=== PATIENT | male | born 1995 | race Caucasian/White ===

== ENCOUNTER → 2017-12-11 09:32 | Outpatient (CLI) | payer MEDICAID, SELFPAY | PROVIDERS: PCP Family Medicine; Visit Provider Nurse Practitioner | DX: Z02.1 Encounter for pre-employment examination (principal) ==

== ENCOUNTER 2019-11-25 17:52 | Emergency (ER) | payer OTHER, SELFPAY ==
[2019-11-25 18:02] VITALS: BMI 25.0
--- NOTE | 2019-11-25 18:03 | XR_ITS ---
PROCEDURE: XR ANKLE RT 2V CLINICAL INDICATION: pain, injury COMPARISON: XR TIBIA FIBULA RT 2V from 11/25/2019 FINDINGS: There is an oblique mildly displaced fracture involving the distal shaft of the tibia. There is 8 mm medial displacement and 6 mm posterior displacement of the distal fracture fragment. The fracture begins at the lateral aspect of the distal diaphyseal region and exits medially at the diaphyseal metaphyseal junction. The ankle mortise appears intact. Lucency is noted along the medial aspect of the talar dome on the AP view but not duplicated on the mortise view and may be due to artifact. There is an oblique mildly displaced fracture involving the proximal fibula. There is 8 mm anterior and 6 mm lateral displacement of this fracture fragment. IMPRESSION: Mildly displaced right tib fib fracture as described above Ankle mortise appears intact Dictated by: Temo Gilman MD 11/26/2019 08:52 Electronically signed by Temo Gilman MD in [place] 11/26/2019 08:52
--- NOTE | 2019-11-25 18:06 | XR_ITS ---
PROCEDURE: XR FOOT RT 2V CLINICAL INDICATION: pain, injury COMPARISON: No exams were available for comparison FINDINGS: No fracture or dislocation. No lytic or blastic change. There is normal mineralization. The joint spaces are well-preserved. No significant degenerative/arthritic changes. No erosive changes evident. Other findings:None. IMPRESSION: Negative right foot Dictated by: Temo Gilman MD 11/26/2019 08:46 Electronically signed by Temo Gilman MD in [place] 11/26/2019 08:46
[2019-11-25 18:07] VITALS: BP 133/81; PULSE 88; RESP 18; TEMP 36.8; O2SAT 99; BMI 25.7
--- NOTE | 2019-11-25 18:07 | HMH.EDLOEX ---
ED Disposition Clinical Impression: Right tibial fracture Qualifiers: Encounter type: initial encounter Tibia location: distal Fracture type: closed Fracture morphology: other fracture Qualified Code(s): S82.391A - Other fracture of lower end of right tibia, initial encounter for closed fracture Right fibular fracture Qualifiers: Encounter type: initial encounter Fibula location: proximal Fracture type: closed Fracture morphology: other fracture Qualified Code(s): S82.831A - Other fracture of upper and lower end of right fibula, initial encounter for closed fracture Disposition: Home, Self-Care Condition on Discharge: Fair Instructions: DI for Shinbone Fracture Additional Instructions: You have been evaluated for a right tibia and fibula fractures. Please keep splint in place. Follow-up with Dr. Hernandez in clinic tomorrow morning. Call the clinic at 8 AM for your appointment ([phone]). Take Tylenol for pain. Rozet for extreme pain. Return to the emergency department if you have any new or worsening symptoms tonight, particularly any tingling in your toes or extreme pain. Prescriptions: Oxycodone HCl [Oxycodone 5mg tab (IR)] 5 mg PO Q4-6H 2 Days #8 tab Prescription Printed Referrals: Pao Rodríguez MD [Primary Care Provider] - Time of Disposition: 19:12 - Critical Care Critical Care Time: No Attestation: On 11/25/19, the high probability of a clinically significant, sudden or life threatening deterioration of the following system(s) required my full and direct attention, intervention and personal management. The time I documented below is in addition to time spent performing reported procedures but includes the following listed in this critical care notation. Medical Decision Making - Jason Inquiry Pt receiving controlled substance: No Vital Signs: 11/25/19 18:07 11/25/19 19:47 Temperature 98.3 F 98.2 F Temperature Source Oral Oral Pulse Rate 91 H Pulse Rate [Right Radial] 88 Respiratory Rate 18 16 Blood Pressure 138/87 Blood Pressure [Right Arm] 133/81 Blood Pressure Mean [Right Arm] 98 Blood Pressure Source Automatic Cuff Blood Pressure Source [Right Arm] Automatic Cuff Blood Pressure Position Sitting Blood Pressure Position [Right Arm] Sitting 02 Sat by Pulse Oximetry 99 Oxygen Delivery Method Room Air Room Air Orders (Tests/Meds): ED MEDICATIONS Discontinued Medications Generic Name Dose Route Start Last Admin Trade Name Freq PRN Reason Stop Dose Admin Acetaminophen 1,000 mg 11/25/19 18:12 11/25/19 18:47 Tylenol 500mg Tablet PO 11/25/19 18:13 1,000 mg ONCE ONE Administration Ibuprofen 600 mg 11/25/19 18:13 11/25/19 18:48 Motrin 600mg Tablet PO 11/25/19 18:14 Not Given ONCE ONE ORDERS Category Date Time Status XR ankle RT 2V Stat Exams 11/25/19 18:06 Taken XR foot RT 2V Stat Exams 11/25/19 18:06 Taken XR tibia fibula RT 2V Stat Exams 11/25/19 18:03 Taken - Radiology Data #1 Image(s): Tib/Fib, Ankle (X-rays of the right foot and ankle show a spiral proximal fibula fracture. Comminuted spiral distal tibia fracture) Image Reviewed: Yes I reviewed the patient's radiology image Medical Decision Narrative: Brennan this is a 24-year-old male presenting to the emergency department with right ankle injury. Patient is stable on arrival to the emergency department. He has pain over the medial malleolus and distal tibia. Concern for tibia fracture, ankle fracture, dislocation, high ankle sprain, strain. Plan to obtain plain film ex-rays of the foot, ankle, tib-fib. Patient given Tylenol for pain. Rays show a proximal fibula fracture and a distal tibia fracture. Orthopedic surgery, Dr. Hernandez consulted for evaluation and recommendations. He personally reviewed the images and recommended splinting tonight and follow-up in clinic tomorrow. Patient will likely need operative repair. Patient was placed into a splint with a posterior slab and st
--- NOTE | 2019-11-25 18:27 | PC.NURSE ---
PT HAS RETURNED FROM RAD AND ORTHO, DR MURPHY, HAS BEEN PAGED.
--- NOTE | 2019-11-25 18:29 | PC.NURSE ---
ADVISES THAT DR MURPHY IS GOING TO REVIEW XRAYS AND CALL US BACK
--- NOTE | 2019-11-25 19:46 | PC.NURSE ---
pt given a set of crutches and demonstrated correct use. peripheral circulation assessed by MD before D/C
[2019-11-25 19:47] VITALS: BP 138/87; PULSE 91; RESP 16; TEMP 36.8; O2SAT 99
== END 2019-11-25 19:49 | disposition home or self-care (01) ==
PROVIDERS: Emergency Provider Emergency Medicine; PCP Family Medicine
DX: S82.391A Other fracture of lower end of right tibia, initial encounter for closed fracture (principal); S82.831A Other fracture of upper and lower end of right fibula, initial encounter for closed fracture; W17.89XA Other fall from one level to another, initial encounter; Y93.39 Activity, other involving climbing, rappelling and jumping off; Y92.017 Garden or yard in single-family (private) house as the place of occurrence of the external cause
CPT/HCPCS: 29515; 73590; 73600; 73620; 99283; 99284

== ENCOUNTER → 2019-11-26 09:16 | Outpatient (CLI) | payer OTHER, SELFPAY ==
--- NOTE | 2019-11-26 09:22 | CT_ITS ---
PROCEDURE: CT ANKLE RT WO CON CLINICAL HISTORY: right distal tibia fx evaluation Pain following injury, fracture evaluation COMPARISON: XR ANKLE RT 2V from 11/25/2019 TECHNIQUE: Axial images obtained with sagittal and coronal reformats. All CT scans at the facility use one or more dose reduction, viz: automated exposure control, ma/kV adjustment per patient size (including targeted exams where dose is matched to indication, i.e. head), or iterative reconstruction technique. FINDINGS: There is a mildly displaced fracture of the distal tibia which has an oblique orientation beginning at the distal diaphyseal region laterally and extending obliquely and inferiorly to the medial metaphyseal diaphyseal junction. There is 12 mm distraction of the distal fracture fragment with mild dorsal displacement of the distal fracture fragment by 4 mm and mild medial displacement by 4 mm. In addition, there is a longitudinal component of the fracture medially which extends to the base of the medial malleolus posteriorly. The talar dome has an unremarkable appearance. The fibula has an unremarkable appearance. The ankle mortise does not appear widened. There is generalized soft tissue swelling about the distal leg and ankle. IMPRESSION: Mildly displaced oblique distal tibial fracture as described above. There is a nondisplaced longitudinal component extending into the posterior aspect of the articular surface of the base of the medial malleolus. Dictated by: Temo Gilman MD 11/26/2019 10:20 Electronically signed by Temo Gilman MD in [place] 11/26/2019 10:20
== END ==
PROVIDERS: PCP Family Medicine; Visit Provider Orthopaedic Surgery
DX: S82.201A Unspecified fracture of shaft of right tibia, initial encounter for closed fracture (principal); S82.401A Unspecified fracture of shaft of right fibula, initial encounter for closed fracture
CPT/HCPCS: 73700

== ENCOUNTER → 2019-11-27 13:29 | Outpatient (CLI) | payer OTHER, SELFPAY ==
[2019-11-27 16:53] LABS: Coronavirus 19 IgG Antibody Negative (Negative); Coronavirus 19 IgM Antibody Negative (Negative)
== END ==
PROVIDERS: Visit Provider Orthopaedic Surgery
DX: Z01.818 Encounter for other preprocedural examination (principal); S82.391A Other fracture of lower end of right tibia, initial encounter for closed fracture; S82.831A Other fracture of upper and lower end of right fibula, initial encounter for closed fracture
CPT/HCPCS: 36415; 86328

== ENCOUNTER 2019-11-30 07:33 | Day surgery (SDC) | payer OTHER, SELFPAY ==
--- NOTE | 2019-11-26 15:12 | SUR.PREOP ---
11/26/2019 @ 8312--PHONE CALL MADE TO PATIENT. PATIENT UNDERSTANDS THAT LAB WORK AND COVID TESTING NEEDS TO BE COMPLETED @ 1030 ON 11/27/2019. PATIENT UNDERSTANDS IF LAB WORK AND COVID-19 TESTS ARE NOT COMPLETED BY 12PM ON THAT DATE, THE SURGERY SCHEDULED WILL BE CANCELLED AND RESCHEDULED FOR ANOTHER TIME.
[2019-11-27 12:22] VITALS: BMI 25.7
[2019-11-30] VITALS (12 sets, daily range): BP systolic 123–145; BP diastolic 46–91; PULSE 93–106; RESP 16–18; TEMP 36.6–43; O2SAT 98–100
--- NOTE | 2019-11-30 08:46 | P.PN_ITS ---
[facility] Anesthesia Checklist - Patient Identification Patient Identification: Arm Band - Structural Data Admitted From: Home Planned Operative Procedure/s: ORIF right distal tibia and syndesmosis fixation Consent for Planned Operative Procedure(s) Verified: Yes Verified Documents: Surgical Consent, History and Physical - NPO Status Verified Time NPO: 00:00 - Additional verifications Anesthesia Reactions: No Hx Blood Transfusions: No Blood Transfusion Reaction: No - Airway Assessment C-Spine Mobility Assessed: Yes (mp2) TMJ Mobility Assessed: Yes Dentition: Good Dentition - Neurological Assessment Level of Consciousness: Awake, Alert - Anesthesia Plan Anesthesia Risk discussed: Yes Anesthesia Plan: Verified ASA Class: I Anesthesia Type: General w/block (risks benefits of nerve block explained. Pt verbalizes understanding) [facility] History I have reviewed the patient's past medical history: Yes Medical History: Denies:: Cancer, Diabetes Mellitus Type 1, Diabetes Mellitus Type 2, Internal Pacemaker, MRSA, Seizures *Have you ever received a pneumonia vaccine?: No *Have you received a flu vaccine this season?: Yes Other Medical History: Denies: Blood Transfusion Reaction Anesthesia experience/problems:: nac Other Surgeries: Yes: No Previous Surgery. No: Pacemaker Amputation: No Fractures: No - *Social History Educational Level: Completed High School Smoking Status: Never smoker Alcohol Intake: never Substance Use Type: denies use *Occupational Status:: employed Housing: house Household Members: family *Travel in the last 8 weeks: None Family Hx:: Coronary Artery Disease, Diabetes
--- NOTE | 2019-11-30 13:10 | XR_ITS ---
PROCEDURE: XR ANKLE RT 2V CLINICAL INDICATION: ORIF distal tibia COMPARISON: XR ANKLE RT 2V from 11/25/2019 FINDINGS: Fluoroscopy time: 1 minutes and 45 seconds Multiple images submitted with the C-arm showing a medial bone plate placed with multiple screws stabilizing the distal tibial fracture with good alignment. Syndesmotic repair of the distal tib fib performed as well with a screw and translucent fixator at the distal tib fib region IMPRESSION: Good alignment status post ORIF distal tibia as described above Dictated by: Temo Gilman MD 11/30/2019 15:34 Electronically signed by Temo Gilman MD in [place] 11/30/2019 15:34
--- NOTE | 2019-11-30 13:13 | P.PN_ITS ---
[facility] Anesthesia Record Part I Intake, IV Amount: 1,600 Estimated blood loss (mL): 10 Urine output (mL): 300 Blood Products used (#): none Blood Pressure: 126/91 SaO2: 98 Pulse Rate: 105 Respiratory Rate: 18 Temperature: 98.0 F Patient is:: Drowsy, Stable Stable to PACU at:: 13:10
--- NOTE | 2019-11-30 13:45 | PC.NURSE ---
1340-pt transported to post op via stretcher with perez rails up, detailed report given to AlemRN at bedside, vss , pt stable
[2019-11-30 14:04] LABS: Microscopic,Cath URINE MICROSCOPIC (MICROSCOPIC)
[2019-11-30 14:49] LABS: Appearance,Urine/Cath CLEAR (Clear); Bilirubin,Cath Negative (Negative); Blood, Urine/Cath Negative (Negative); Color,Urine/Cath YELLOW (Yellow); Glucose,Urine/Cath (UA) Negative (Negative); Ketones,Urine/Cath Negative (Negative); Leukocyte Esterase,Cath Negative (Negative); Nitrate,Cath Negative (Negative); Protein,Urine/Cath Negative (Negative); Specific Gravity, Urine/Cath 1.025 (1.005-1.030); Urobilinogen,Cath 0.2 EU/dl (0.2)
--- NOTE | 2019-11-30 15:07 | P.PN_ITS ---
[facility] Anesthesia Record Part II Discharge Time: 13:40 Destination: Surgical Day Care (OP Surgery) PACU nurse assessment reviewed?: Yes Patient Condition:: Good Anesthesia Complications:: None Swallowing reflex intact?: Yes Cyanosis?: No Blood Pressure: 145/85 Pulse Rate: 103 Temperature: 98.7 F Mental Status: Alert & Oriented Pain level:: 0 Nausea and/or vomitting:: None Intake, IV Amount: 50
[2019-11-30 15:22] LABS: Squamous Epithelial Ur./Cath Occasional #/hpf (0-5); WBC,Urine/Cath Occasional #/hpf (0-3)
--- NOTE | 2019-11-30 15:49 | HMH.OPNOTE ---
Date of procedure: 11/30/19 Pre-op Diagnosis:: 1. Closed, comminuted, displaced fracture distal tibia, right 2. Closed proximal fibula fracture, right Post-op Diagnosis:: 1. Closed, comminuted, displaced fracture distal tibia, right 2. Closed proximal fibula fracture, right 3. Syndesmotic injury, right ankle Procedure performed:: 1. Open reduction internal fixation, right distal tibia 2. Syndesmotic fixation, right ankle Surgeon:: Arjun Hernandez MD SENIOR ACCOUNTING ASSOCIATE:: Barrie Rodríguez Anesthesia: GETA, regional (Nerve block) Estimated blood loss (mL): 10 Clinical Note:: Patient is a 24-year-old male who sustained a displaced spiral fracture of the distal tibia with a spiral fracture of the proximal fibula on the right side following injury 5 days ago while doing a back flip on the [employer]; he says he landed funny on his right foot sustaining a twisting injury to the leg. He developed pain and swelling immediately and was unable to weight-bear/walk. Following the injury he went to the Emergency Room where x-rays confirmed a spiral fracture of the distal tibia with a high fibula fracture. After x-rays were performed he was placed in a short leg splint and told to follow up with orthopaedics. During evaluation in the office the next day, he continued to have pain around his right distal tibia/ankle. He states any movements aggravate his pain. He rates his pain a 7 out of 10 at worst. He states icing, elevation, pain medication and rest help alleviate his pain to some extent. No history of any distal tingling or numbness. No history of any other injuries. He states he is mobilizing nonweightbearing using crutches to ambulate. No history of any previous ankle injuries or surgery. He has remote history of bilateral foot fractures treated nonoperatively. He is a non smoker and overall is healthy. He works at [employer]. Evaluation in the office including noncontrast CT of the right ankle confirmed intra-articular extension of the fracture into the ankle joint. Following discussion with the patient and his mother, patient elected to proceed with surgical remediation in the form of open reduction internal fixation of the right distal tibia. Please refer to my office note for full details. Operative findings:: Preoperative imaging findings and diagnosis correlate with the intraoperative findings. There is a displaced and comminuted spiral fracture of the distal tibia with extension into the ankle joint. High fibula fracture noted as seen in the preoperative x-rays. The tibia fracture is anatomically reduced and fixed with interfragmentary screws and locking plate and screws through the medial approach. After fixation of the distal tibial fracture, the inferior tibiofibular syndesmosis appeared unstable on stress x-rays of the ankle and therefore syndesmotic fixation was performed with Fibulink syndesmotic fixation device. Following fixation the fracture and syndesmosis, the ankle joint is noted to be reduced anatomically and is stable. Operative note:: On the day of surgery, the patient and his were met in the preoperative area and the patient was positively identified. I have again reviewed the clinical and imaging findings, diagnosis, management options including both nonsurgical and surgical and the expected results. Given the clinical and radiological findings, I have recommended an open reduction and internal fixation of the distal tibia fracture and stabilization of the syndesmosis as needed intraoperatively. We've outlined where the incisions would be made on the skin. Risks of surgery discussed include but are not limited to- infection, injury to nerves and blood vessels, injury to tendons, acute compartment syndrome, DVT/PE, mal-union, nonunion, stiffness, CRPS (complex regional pain syndrome- pain, sensory and temperature changes, swelling and stiffness), painful hardware, loss of fixation, arthritis, incomplete relief of pain, incomplete return of function
== END 2019-11-30 14:26 | disposition home or self-care (01) ==
LOC: OR 07:36
PROVIDERS: PCP Family Medicine; Visit Provider Orthopaedic Surgery
PROC: (CPT 27758; principal; 2019-11-30 08:45)
DX: S82.251A Displaced comminuted fracture of shaft of right tibia, initial encounter for closed fracture (principal); S82.441A Displaced spiral fracture of shaft of right fibula, initial encounter for closed fracture; S93.431A Sprain of tibiofibular ligament of right ankle, initial encounter; Y93.44 Activity, trampolining; Y92.017 Garden or yard in single-family (private) house as the place of occurrence of the external cause
CPT/HCPCS: 27758; 27829; 73600; 76000; 81001; 96374; C1713; C1776; J2405

== ENCOUNTER → 2019-12-08 10:31 | Outpatient (CLI) | payer OTHER, SELFPAY ==
--- NOTE | 2019-12-08 10:41 | XR_ITS ---
PROCEDURE: XR ANKLE RT MIN 3V CLINICAL INDICATION: sp RT tibia/ RT syndemosis of ankle dos 11/30/2019 Follow-up surgery/fracture COMPARISON: XR ANKLE RT 2V from 11/30/2019 FINDINGS: There is a medial bone plate along the distal 1/3 of the tibia with curved component at the medial malleolar region. Status post syndesmosis repair with translucent fixator at the tib fib region. There is good alignment the tibial fracture fragments. The ankle mortise does not appear widened. There is a splint in place posteriorly. IMPRESSION: Good alignment status post ORIF distal tib fib Dictated by: Temo Gilman MD 12/08/2019 14:19 Electronically signed by Temo Gilman MD in [place] 12/08/2019 14:19
== END ==
PROVIDERS: PCP Family Medicine; Visit Provider Orthopaedic Surgery
DX: S82.401D Unspecified fracture of shaft of right fibula, subsequent encounter for closed fracture with routine healing (principal)
CPT/HCPCS: 73610

== ENCOUNTER 2019-12-08 11:32 | Outpatient (RCR) | payer OTHER, SELFPAY | END 2019-12-08 12:00 | disposition home or self-care (01) | LOC: PT 11:32 | PROVIDERS: Visit Provider Orthopaedic Surgery | DX: S82.391D Other fracture of lower end of right tibia, subsequent encounter for closed fracture with routine healing (principal); S82.831D Other fracture of upper and lower end of right fibula, subsequent encounter for closed fracture with routine healing | CPT/HCPCS: 97760 ==

== ENCOUNTER → 2020-01-13 10:14 | Outpatient (CLI) | payer OTHER, SELFPAY ==
--- NOTE | 2020-01-13 10:15 | XR_ITS ---
PROCEDURE: XR ANKLE RT MIN 3V CLINICAL INDICATION: sp ORIF RT ankle Syndesmotic fixation Kathy COMPARISON: XR ANKLE RT 2V from 11/25/2019 XR TIBIA FIBULA RT 2V from 11/25/2019 XR ANKLE RT MIN 3V from 12/08/2019 XR TIBIA FIBULA RT 2V from 01/13/2020 FINDINGS: There has been prior ORIF the comminuted distal tibial fracture with a medial bone plate with multiple screws and there has been prior syndesmotic repair the distal tibial-fibular junction. There is good alignment. The ankle mortise is preserved. No significant displacement. There is a healing nondisplaced oblique fracture of the proximal shaft of the fibula with developing callus formation. IMPRESSION: 1. Good alignment status post ORIF tibial for fracture with syndesmotic repair 2. Healing proximal fibular fracture Dictated by: Temo Gilman MD 01/13/2020 13:48 Electronically signed by Temo Gilman MD in [place] 01/13/2020 13:48
== END ==
PROVIDERS: PCP Family Medicine; Visit Provider Orthopaedic Surgery
DX: Z09 Encounter for follow-up examination after completed treatment for conditions other than malignant neoplasm (principal); S82.391D Other fracture of lower end of right tibia, subsequent encounter for closed fracture with routine healing; S82.831D Other fracture of upper and lower end of right fibula, subsequent encounter for closed fracture with routine healing
CPT/HCPCS: 73590; 73610

== ENCOUNTER → 2020-02-10 10:26 | Outpatient (CLI) | payer OTHER, SELFPAY ==
--- NOTE | 2020-02-10 10:28 | XR_ITS ---
PROCEDURE: XR TIBIA FIBULA RT 2V CLINICAL INDICATION: sp ORIF RT ankle Syndesmotic fixation Follow-up surgery COMPARISON: CR XR TIBIA FIBULA RT 2V from 11/25/2019 CR XR TIBIA FIBULA RT 2V from 01/13/2020 CR XR ANKLE RT MIN 3V from 01/13/2020 CR XR ANKLE RT MIN 3V from 02/10/2020 FINDINGS: Status post ORIF distal tib fib with a medial bone plate at the distal tibia. There is callus formation developing medially at the comminuted fracture. There is good alignment. There is syndesmotic repair of the distal tib fib with preservation of the ankle mortise. Healing only displaced proximal fibular fracture is present. IMPRESSION: Status post ORIF with good alignment healing distal tibial fracture and proximal fibular fracture Dictated by: Temo Gilman MD 02/10/2020 12:00 Temo Gilman MD in [place] 02/10/2020 12:00
== END ==
PROVIDERS: PCP Family Medicine; Visit Provider Orthopaedic Surgery
DX: S82.201A Unspecified fracture of shaft of right tibia, initial encounter for closed fracture (principal); S82.401A Unspecified fracture of shaft of right fibula, initial encounter for closed fracture; Z09 Encounter for follow-up examination after completed treatment for conditions other than malignant neoplasm
CPT/HCPCS: 73590; 73610

== ENCOUNTER 2020-03-09 09:30 | Outpatient (RCR) | payer OTHER, SELFPAY ==
--- NOTE | 2020-01-21 14:39 | HMH.PTOPEV ---
PT Outpatient Evaluation Rehab PT Outpatient Evaluation Start: 01/21/20 14:27 Freq: Status: Active Protocol: Document 01/21/20 14:27 ARON (Rec: 01/21/20 14:38 ARON [id number]) Electronically Signed By Gerhard Murillo, PT 01/21/20 14:27 Outpatient Therapy Subjective History Subjective History Pt presents s/p R ankle/distal tibia ORIF sx. on 11/30/19. Pt reports initial injury to R LE occurred on 11/25/19-trampoline injury. Pt reports minimal R LE pain , some residual swelling, and stiffness as well as weakness. Chief Complaint Pain,Stiff,Swelling,Weakness Symptom Type Ache,Dull Symptoms Relieved By Rest/Positioning,Ice Symptoms Aggravated By Standing,Walking Prior Functional Limitations None Current Functional Limitations Standing,Walking,Stairs Symptom Description Constant but Variable Level of pain today (0-10) 2 Pain scale - at its best (0-10) 2 Pain scale - at its worst (0-10) 6 Ankle/Foot Eval Gait Observation General Gait Pattern Observation Antalgic Gait Palpation Tenderness right Ankle/Foot Palpation Findings Tenderness Ankle/Foot Palpation Overall Comment 2-3/4 surgical incision, sinus tarsi, lateral malleolus ROM Ankle/Foot Dorsiflexion w/Knee Extended 0 Active Range Motion (degrees) Ankle/Foot Dorsiflexion w/Knee Extended 0-5 Passive Range (degrees) Ankle/Foot Plantar Flexion Active Range 0-50 of Motion (degrees) Ankle/Foot Eversion Active Range of 0-18 Motion (degrees) Ankle/Foot Inversion Active Range of 0-40 Motion (degrees) Ankle/Foot ROM Limitations Soft Tissue Tightness MMT Ankle Dorsiflexion Strength Grade 4 Good Ankle Plantarflexion Strength Grade 4- Good- Foot Eversion Strength Grade 4 Good Foot Inversion Strength Grade 4- Good- Outpatient Therapy Assessment Impairments Problems/Impairmments Palpation Tenderness,Impaired Range of Motion,Impaired Strength,Impaired Gait Pattern ,Impaired Walking,Impaired Standing,Impaired Stair Climbing,Subjective C/O Pain, Impaired Self Care/Self Management Prognosis Rehab Potential Good Clinical Impression Consistent with Diagnosis Yes Short Term Goals Number of Weeks 4 Decreased Palpation Tenderness Yes: 1-2/4 Increase Range of Motion Yes: 75-80% of WFL Increase Strength
--- NOTE | 2020-03-07 14:13 | HMH.RHREAS ---
Rehab Reassessment Rehab OP Re-assessment Start: 03/02/20 14:49 Freq: Status: Active Protocol: Document 03/07/20 13:55 ANKUSHLANG (Rec: 03/07/20 14:13 ARON [id number]) Electronically Signed By Gerhard Murillo, PT 03/07/20 13:55 Rehab Re-assessment Subjective Subjective Pt reports 0/10 R ankle pain on VAS w/low-level wt. bearing activity, and 1-2/10 R ankle pain w/high-level (jogging) activity on VAS, and feels 85% better overall since I Eval Objective Objective Notes AROM: R ANKLE DF 0-12, PF 0-50 , INV 0-45, EVR 0-35 MMT: R ANKLE DF 4+/5, PF 4+/5, INV 4+/5, EVR 4+/5 TTP: 0-1/4 MEDIAL SX. INCISION GAIT: WFL WALKING ON LEVEL TERRAIN Assessment Progress Assessment Progressing as Expected Assessment Notes IMPROVED SIGNIFICANTLY W/ROM, STRENGTH, AND TTP Patient goals met STG'S / LTG'S 6/8 Goals Not Met LTG'S 2/8 Revised Goals LTG'S #9: PT TO RUN ON TREADMILL FOR 3-5MIN @6.5-7. 0MPH, NO INCLINE, GAIT WFL, FOR FUTURE BORDER PATROL RELATED DUTIES Plan Plan PT TO CONT. W/SKILLED P.T. TO MAKE FURTHER IMPROVEMENTS IN STRENGTH, TTP, AND HIGHER LEVEL GAIT PATTERNS/TRAINING TO ALLOW FOR OPTIMAL FUNCTION AND EXECUTION OF JOB RELATED DUTIES Frequency of Therapy 1-2X/WK Duration of therapy 3-4 WKS Time and Billing Re-Eval Time 15 Re-Eval Billing Units 1 PHYSICIAN CERTIFICATION: I certify the specified therapy services for Osmel Doyle are required, authorized, and reviewed every 30 days.
== END 2020-03-09 10:24 | disposition home or self-care (01) ==
LOC: PT 09:30
PROVIDERS: PCP Family Medicine; Visit Provider Orthopaedic Surgery
DX: S82.831A Other fracture of upper and lower end of right fibula, initial encounter for closed fracture; S82.391A Other fracture of lower end of right tibia, initial encounter for closed fracture
CPT/HCPCS: 97010; 97014; 97016; 97110; 97112; 97140; 97163; 97164; G0283

== ENCOUNTER → 2020-03-23 09:49 | Outpatient (CLI) | payer OTHER, SELFPAY ==
--- NOTE | 2020-03-23 09:54 | XR_ITS ---
PROCEDURE: XR TIBIA FIBULA RT 2V CLINICAL INDICATION: sp ORIF RT distal tibia Follow-up fracture COMPARISON: CR XR TIBIA FIBULA RT 2V from 11/25/2019 CR XR TIBIA FIBULA RT 2V from 01/13/2020 CR XR TIBIA FIBULA RT 2V from 02/10/2020 CR XR ANKLE RT MIN 3V from 03/23/2020 FINDINGS: There is a medial bone plate along the distal tibia with multiple cortical screws. Healing fracture noted at the distal tibia with callus formation laterally. Status post syndesmosis fixation with translucent fixator. The ankle mortise appears preserved. There is good alignment. The joint spaces are well-preserved. No significant degenerative/arthritic changes. No erosive changes evident. Other findings:None. IMPRESSION: Healing distal tibial fracture status post ORIF Dictated by: Temo Gilman MD 03/23/2020 15:21 Temo Gilman MD in [place] 03/23/2020 15:21
== END ==
PROVIDERS: PCP Family Medicine; Visit Provider Orthopaedic Surgery
DX: Z09 Encounter for follow-up examination after completed treatment for conditions other than malignant neoplasm (principal); S82.391A Other fracture of lower end of right tibia, initial encounter for closed fracture; S82.831A Other fracture of upper and lower end of right fibula, initial encounter for closed fracture
CPT/HCPCS: 73590; 73610

== ENCOUNTER 2022-03-14 09:28 | Emergency (ER) | payer OTHER, SELFPAY ==
[2022-03-14 09:50] VITALS: BP 117/80; PULSE 105; RESP 20; TEMP 37.2; O2SAT 98; BMI 26.2
--- NOTE | 2022-03-14 09:55 | EXP.UTC ---
Discharge Plan Disposition Patient Disposition: Home, Self-Care Condition: Good Prescriptions Prescriptions: New kucepmtmobkdglq-taahqpoxg-GQ [Bromfed DM] 2-30-10 mg/5 mL Syrup 5 - 10 ml PO Q4H PRN (Reason: Cough) Qty: 240 0RF Referrals Follow up/Referrals: Provider,Referral, [Primary Care Provider] - See instructions Activity Restrictions/Add. Instructions Additional Instructions/Restrictions: *Monitor Temp, Over the counter Motrin or Tylenol as directed/as needed Tylenol every 4 hours and Motrin every 6 hours (as long as your family doctor has told you that you can take it) for fever or pain. and straight to ER if unable to lower temp less than 101.0 after medication given *Warm salt water gargles may help to soothe the throat *Throat Lozenges? *Warm fluids like tea with honey may help to soothe the throat? *Sleep elevated *Humidifier/Vaporizer *Bromfed may cause drowsiness. Know how it effects you (your child) before driving, caring for small child, or sending your child to school. Not other antihistamines/allergy medications while taking bromfed Follow up IMMEDIATELY for new or worsening symptoms or no Noticeable improvement over the next 48-72 hours. 911 for difficulty breathing or swallowing You were tested for today for COVID19 your test result should be back in the next 24-48 hours, you may check your results on the [facility] [employer] Health Portal Make sure to take your Vitamins Vit. C Vit D and Zinc if you can take them Clinical Impressions Clinical Impression: Encounter for laboratory testing for COVID-19 virus Stand Alone Forms Stand Alone Forms: Work/School Release Instructions Patient Instructions: Coronavirus Disease 2019, Preventing the Spread of Coronavirus Discharge Instructions, DI for Viral Syndrome Discharge ED Provider: Sarah Dugan [facility] [place] [facility] [place] General Stated complaint: congestion, body aches, cough, KEANE Time Seen by Provider: 03/14/22 09:55 History of Present Illness Provider Complaint: Patient states that he has been having headache, body aches, chills, nasal congestion for the last couple of days States that he took an at home test for COVID and it was positive so he came in today to get tested Related Data Previous Rx's Medication Instructions Recorded kmtmvgnypeztmen-jvutytfmpryxgsv-XK 5 - 10 ml PO Q4H PRN Cough #240 mL 03/14/22 2 mg-30 mg-10 mg/5 mL oral syrup (Bromfed DM) Allergies Allergy/AdvReac Type Severity Reaction Status Date / Time No Known Allergies Allergy Verified 03/23/20 10:22 PFSH PFSH Social History Smoking Status: Never smoker second hand exposure: No alcohol intake: never substance use type: denies use current occupational status: employed Travel in the last 8 weeks: None household members: family housing: house current occupation: [employer] current occupational exposures/hazards: No caffeine: Yes ROS Obtained: Yes All systems reviewed & no additional complaints except as documented and Yes Systems reviewed as appropriate & no additional complaints except as documented Constitutional Constitutional: Reports system reviewed and no additional complaints, except as documented, Reports as per HPI, Reports body ache, Reports chills, Reports fatigue, Reports fever(s) and Reports headache(s) ENT Ears, Nose, Mouth, and Throat: Reports system reviewed and no additional complaints, except as documented, Reports as per HPI, Reports headache(s) and Reports nasal congestion Cardiovascular Cardiovascular: Reports system reviewed and no additional complaints, except as documented and Reports as per HPI Respiratory Respiratory: Reports system reviewed and no additional complaints, except as documented, Reports as per HPI and Reports cough Gastrointestinal Gastrointestingal: Reports system reviewed and no additional complaints, except as documented and as per HPI Neurologic Neurologic: Reports headache(s) Endocrine Endocrine
[2022-03-14 10:03] VITALS: BP 117/80; PULSE 105; RESP 20; TEMP 37.2; O2SAT 98
== END 2022-03-14 10:08 | disposition home or self-care (01) ==
PROVIDERS: Emergency Provider Nurse Practitioner
DX: U07.1 COVID-19 (principal)
CPT/HCPCS: 99212; C9803; G0463; U0003; U0005

== ENCOUNTER 2022-09-07 16:04 | Emergency (ER) | payer BC, OTHER, SELFPAY ==
[2022-09-07 16:15] VITALS: BP 120/78; PULSE 86; RESP 18; TEMP 36.6; O2SAT 100; BMI 26.2
--- NOTE | 2022-09-07 16:26 | EXP.UTC ---
Discharge Plan Disposition Patient Disposition: Home, Self-Care Condition: Good Prescriptions Prescriptions: No Action nwnugkhevwsotwy-sqmzalhbd-YM [Bromfed DM] 2-30-10 mg/5 mL Syrup 5 - 10 ml PO Q4H PRN (Reason: Cough) Qty: 240 0RF Referrals Follow up/Referrals: Berhane Sterling MD [Primary Care Provider] - See instructions Melvin Huffman MD [Physician] - See instructions (Call office for appointment) Saman Hennessy MD [Physician] - See instructions Activity Restrictions/Add. Instructions Additional Instructions/Restrictions: Do not push or rub at the swollen area Watch it to see if gets larger, turns red or becomes painful Follow up with ENT Call office for appointment for further evaluation and examination Return if needed Follow up with your Family Doctor if no improvement Clinical Impressions Clinical Impression: Swelling of lymph node Stand Alone Forms Stand Alone Forms: Work/School Release Discharge ED Provider: Sarah Dugan [facility] General Stated complaint: h/a, bump on side of neck Mode of Arrival: Ambulatory Source of Information: Patient Limitations: No Limitations Time Seen by Provider: 09/07/22 16:26 Description of Symptoms (Recalled from Triage Doc. by RN): PATIENT C/O BUMP TO LEFT SIDE OF NECK X 2 DAYS HEENT Symptoms (Recalled from RN notes): Yes Resp Symptoms (Recalled from RN notes): No Skin Symptoms (Recalled from RN notes): No MS Symptoms (Recalled from RN notes): No Functional Status (Recalled from RN notes): WNL History of Present Illness Provider Complaint: Patient states that he noticed an area on the left side of his neck below his left ear that is kind of round and moves when he touches it States that it is not sore or anything and he was unsure if it was a swollen lymph node or cyst so he wanted to get it looked at Related Data Previous Rx's Medication Instructions Recorded ixqnddhpseobiio-jwtvfnagqjrhzip-JV 5 - 10 ml PO Q4H PRN Cough #240 mL 03/14/22 2 mg-30 mg-10 mg/5 mL oral syrup (Bromfed DM) Allergies Allergy/AdvReac Type Severity Reaction Status Date / Time No Known Allergies Allergy Verified 03/23/20 10:22 Worker's Comp Is this a Worker's Comp case?: No [facility] Disclaimer: The information contained in this section may have been updated after the patient was seen, as this information can be updated by other users. Medical History (Updated 09/07/22 @ 16:40 by Sarah Dugan APRN) No significant past medical history Social History (Updated 03/14/22 @ 10:03 by Genesis Spears RN) Smoking Status: Never smoker second hand exposure: No alcohol intake: never substance use type: denies use current occupational status: employed Travel in the last 8 weeks: None household members: family housing: house current occupation: [employer] current occupational exposures/hazards: No caffeine: Yes ROS Obtained: Yes All systems reviewed & no additional complaints except as documented and Yes Systems reviewed as appropriate & no additional complaints except as documented Constitutional Constitutional: Reports system reviewed and no additional complaints, except as documented, Reports as per HPI and Reports headache(s) (at times) Eyes Eyes: Reports system reviewed and no additional complaints, except as documented, Reports as per HPI, Denies blurry vision, Denies change in vision, Denies loss of vision, Denies photophobia, Denies seeing flashes and Denies tunnel vision ENT Ears, Nose, Mouth, and Throat: Reports system reviewed and no additional complaints, except as documented, Reports as per HPI, Denies otalgia, Reports headache(s) (at times), Reports nasal congestion, Denies nasal discharge and Denies sore throat Cardiovascular Cardiovascular: Reports system reviewed and no additional complaints, except as documented and Reports as per HPI Respiratory Respiratory: Reports system reviewed and no additional complaints, except as docu
[2022-09-07 16:48] VITALS: BP 120/78; PULSE 86; RESP 18; TEMP 36.6; O2SAT 100
== END 2022-09-07 16:50 | disposition home or self-care (01) ==
PROVIDERS: Emergency Provider Nurse Practitioner; PCP Family Medicine
DX: R59.0 Localized enlarged lymph nodes (principal)
CPT/HCPCS: 99212; G0463

== ENCOUNTER 2022-09-29 12:08 | Emergency (ER) | payer BC, OTHER, SELFPAY ==
[2022-09-29 13:10] VITALS: BP 116/75; PULSE 75; RESP 20; TEMP 37; O2SAT 99; BMI 25.5
--- NOTE | 2022-09-29 13:24 | EXP.UTC ---
Discharge Plan Disposition Patient Disposition: Home, Self-Care Condition: Good Prescriptions Prescriptions: New ondansetron 4 mg Tablet,Disintegrating 4 mg PO Q8H PRN (Reason: Nausea) Qty: 12 0RF Referrals Follow up/Referrals: Khang Curry MD [Primary Care Provider] - See instructions Activity Restrictions/Add. Instructions Additional Instructions/Restrictions: Drink plenty of fluids. Take tylenol or ibuprofen for pain or fever. Take the medications as directed. Follow up with your regular doctor. GO TO THE ER FOR ANY WORSENING SYMPTOMS Clinical Impressions Clinical Impression: Gastroenteritis Stand Alone Forms Stand Alone Forms: Work/School Release Instructions Patient Instructions: Viral Gastroenteritis, DI for Viral Gastroenteritis -- Adult, Ondansetron Discharge ED Provider: Alex Farnsworth [facility] General Stated complaint: vomiting,diarrhea,hot flashes,headache Mode of Arrival: Ambulatory Source of Information: Patient Limitations: No Limitations Time Seen by Provider: 09/29/22 13:23 Description of Symptoms (Recalled from Triage Doc. by RN): vomit, stomach ache, KEANE, diarrhea, and fatigue HEENT Symptoms (Recalled from RN notes): No Resp Symptoms (Recalled from RN notes): No Skin Symptoms (Recalled from RN notes): No MS Symptoms (Recalled from RN notes): No Functional Status (Recalled from RN notes): n/a History of Present Illness Provider Complaint: He states that for the past 1 day he has had diarrhea, n/v and chills. He denies any abdominal pain. Related Data Previous Rx's Medication Instructions Recorded ondansetron 4 mg disintegrating 4 mg PO Q8H PRN Nausea #12 tabs 09/29/22 tablet Allergies Allergy/AdvReac Type Severity Reaction Status Date / Time No Known Allergies Allergy Verified 09/29/22 13:18 Worker's Comp Is this a Worker's Comp case?: No [facility] Disclaimer: The information contained in this section may have been updated after the patient was seen, as this information can be updated by other users. Medical History No significant past medical history Social History Smoking Status: Never smoker second hand exposure: No alcohol intake: never substance use type: denies use current occupational status: employed Travel in the last 8 weeks: None household members: family housing: house current occupation: [employer] current occupational exposures/hazards: No caffeine: Yes ROS Obtained: Yes All systems reviewed & no additional complaints except as documented Constitutional Constitutional: Denies chills, Denies fever(s) and Reports poor appetite ENT Ears, Nose, Mouth, and Throat: Denies dizziness and Denies sore throat Cardiovascular Cardiovascular: Denies dyspnea Respiratory Respiratory: Denies chest congestion, Denies cough and Denies dyspnea Gastrointestinal Gastrointestingal: Reports as per HPI; Denies abdominal pain Genitourinary Male Genitourinary: Denies hematuria, Denies urinary frequency, Denies urinary hesitancy, Denies urinary incontinence and Denies urinary urgency Musculoskeletal Musculoskeletal: Denies arthralgias Integumentary/Breasts Skin/Breast: Denies rash Neurologic Neurologic: Denies dizziness Physical Exam General General appearance: alert and in no apparent distress Head Head exam: atraumatic and normocephalic Eye Eye exam: Present normal appearance, PERRL and EOMI ENT ENT exam: Present normal exam, normal oropharynx, mucous membranes moist, TM's normal bilaterally and normal external ear exam Neck Neck exam: Present normal inspection, full ROM and trachea midline; Absent tenderness, meningismus or lymphadenopathy Chest Chest inspection: Present normal inspection and symmetric chest wall rise; Absent tenderness, rash or abscess Respiratory Respiratory exam: Present normal lung sounds bilaterally;
[2022-09-29 13:41] VITALS: BP 116/75; PULSE 75; RESP 20; TEMP 37; O2SAT 99
== END 2022-09-29 13:41 | disposition home or self-care (01) ==
PROVIDERS: Emergency Provider Nurse Practitioner Family; PCP Family Medicine
DX: K52.9 Noninfective gastroenteritis and colitis, unspecified (principal); R11.2 Nausea with vomiting, unspecified; R51.9 Headache, unspecified
CPT/HCPCS: 99212; 99214; G0463

== ENCOUNTER 2023-09-06 10:11 | Emergency (ER) | payer BC, SELFPAY ==
[2023-09-06 10:40] VITALS: BP 144/78; PULSE 93; RESP 19; TEMP 36.9; O2SAT 97; BMI 29.0
--- NOTE | 2023-09-06 10:47 | ED_ITS ---
Discharge Plan Disposition Patient Disposition: Home, Self-Care Condition: Good Prescriptions Prescriptions: No Action ondansetron 4 mg Tablet,Disintegrating 4 mg PO Q8H PRN (Reason: Nausea) Qty: 12 0RF Referrals Follow up/Referrals: Khang Curry MD [Primary Care Provider] - See instructions Activity Restrictions/Add. Instructions Additional Instructions/Restrictions: *Monitor Temp, Over the counter Motrin or Tylenol as directed/as needed Tylenol every 4 hours and Motrin every 6 hours (as long as your family doctor has told you that you can take it) for fever or pain. and straight to ER if unable to lower temp less than 101.0 after medication given *Warm salt water gargles may help to soothe the throat *Throat Lozenges? *Warm fluids like tea with honey may help to soothe the throat? *Sleep elevated? *Humidifier/Vaporizer Follow up IMMEDIATELY for new or worsening symptoms or no Noticeable improvement over the next 48-72 hours. 911 for difficulty breathing or swallowing You were tested for today for COVID19 your test result should be back in the next 24 hours, you may check your results on the [facility] [employer] Health Portal Clinical Impressions Clinical Impression: Viral syndrome Stand Alone Forms Stand Alone Forms: Work/School Release Instructions Patient Instructions: DI for COVID-19 (Suspected or Confirmed ) Discharge ED Provider: Sarah Dugan [facility] [place] HPI General Stated complaint: headache, abd pain, decrease smell, pos covid test Time Seen by Provider: 09/06/23 10:47 History of Present Illness Provider Complaint: Patient states that he hasnt felt well for the last couple of days with nasal congestion, nausea, scratchy throat and body aches, States he took a home COVID test and it was positive so his work had him come in and get an official test Related Data Previous Rx's Medication Instructions Recorded ondansetron 4 mg disintegrating 4 mg PO Q8H PRN Nausea #12 tabs 09/29/22 tablet Allergies Allergy/AdvReac Type Severity Reaction Status Date / Time No Known Allergies Allergy Verified 09/29/22 13:18 [facility] Disclaimer: The information contained in this section may have been updated after the patient was seen, as this information can be updated by other users. Medical History No significant past medical history Social History Smoking Status: Never smoker second hand exposure: No alcohol intake: never substance use type: denies use current occupational status: employed Travel in the last 8 weeks: None household members: family housing: house current occupation: [employer] current occupational exposures/hazards: No caffeine: Yes ROS Obtained: Yes All systems reviewed & no additional complaints except as documented and Yes Systems reviewed as appropriate & no additional complaints except as documented Constitutional Constitutional: Reports system reviewed and no additional complaints, except as documented and Reports as per HPI ENT Ears, Nose, Mouth, and Throat: Reports system reviewed and no additional complaints, except as documented, Reports as per HPI, Reports nasal congestion and Reports nasal discharge Cardiovascular Cardiovascular: Reports system reviewed and no additional complaints, except as documented and Reports as per HPI Respiratory Respiratory: Reports system reviewed and no additional complaints, except as documented and Reports as per HPI Gastrointestinal Gastrointestingal: Reports system reviewed and no additional complaints, except as documented, as per HPI and nausea Physical Exam General General appearance: alert and in no apparent distress ENT ENT exam: Present mucous membranes moist Expanded ENT Exam Nose exam: Absent sinus tenderness Throat exam: Present normal inspection Respiratory Respiratory exam: Present normal lung sounds bilaterally; Absent respiratory distress or wheezes Cardiovascular Cardiovascular exam: Present regular rate, normal rhythm and normal heart sounds Neurological Exam Neurological exam: Present alert, oriented X3 and normal gait Medical Decision Making Jason Inquiry Pt receiving controlled substance: No Jason was queried for this patient: No
[2023-09-06 10:53] VITALS: BP 144/78; PULSE 93; RESP 19; TEMP 36.9; O2SAT 97
== END 2023-09-06 11:03 | disposition home or self-care (01) ==
PROVIDERS: Emergency Provider Nurse Practitioner; PCP Family Medicine
DX: R51.9 Headache, unspecified (principal); R10.9 Unspecified abdominal pain; B34.9 Viral infection, unspecified; R09.81 Nasal congestion; R11.0 Nausea; R43.0 Anosmia
CPT/HCPCS: 87635; 99212; 99213; G0463

== ENCOUNTER 2024-08-25 17:56 | Emergency (ER) | payer BC, SELFPAY ==
[2024-08-25 18:07] VITALS: BP 120/83; PULSE 83; RESP 20; TEMP 36.7; O2SAT 99; BMI 29.9
--- NOTE | 2024-08-25 18:08 | ED_ITS ---
<Statement entered by Josie Roque DO - 08/25/24 23:16> I was consulted by the GISSELLE, and we discussed the complexity of the problems being addressed. I approved the treatment and management plan for this patient's care in the emergency department, thus performing a substantive portion of the medical decision making. Josie Roque DO Discharge Plan Disposition Patient Disposition: Home, Self-Care Condition: Good Prescriptions Prescriptions: New albuterol sulfate 90 mcg/actuation HFA aerosol inhaler 1 inh inhalation Q4H PRN (Reason: shortness of breath or wheezing) Qty: 8.5 0RF No Action ondansetron 4 mg Tablet,Disintegrating 4 mg PO Q8H PRN (Reason: Nausea) Qty: 12 0RF Referrals Follow up/Referrals: Khang Curry MD [Primary Care Provider] - See instructions Tammy Owen MD [Physician] - See instructions Activity Restrictions/Add. Instructions Additional Instructions/Restrictions: As we discussed I have referred you to pulmonology for further testing as you may have reactive airway disease. I have sent your inhaler to your pharmacy. If you use it more than twice in the day you need to follow-up with your PCP return to the ER as needed. Clinical Impressions Clinical Impression: RAD (reactive airway disease) Stand Alone Forms Stand Alone Forms: Work/School Release Print Language Print Language: Mauritian Discharge ED Provider: Josie Roque General Adult HPI General Chief complaint: Upper Respiratory Infection Stated complaint: SOA Time Seen by Provider: 08/25/24 18:08 History of Present Illness HPI narrative: Patient presents for evaluation of dyspnea. Patient states that he suddenly began this afternoon having sensation of difficulty taking breaths. He reports that he felt like it was tight in his chest . Patient does not have a known history of asthma denies fever chills hemoptysis hematochezia melena chest pain. 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 He typically does not wear rest gen personal protection. Related Data Previous Rx's ?Medication ?Instructions ?Recorded ondansetron 4 mg disintegrating 4 mg PO Q8H PRN Nausea #12 tabs 09/29/22 tablet albuterol sulfate 90 mcg/actuation 1 inh inhalation Q4H PRN shortness 08/25/24 aerosol inhaler of breath or wheezing #8.5 grams Allergies Allergy/AdvReac Type Severity Reaction Status Date / Time No Known Allergies Allergy Verified 09/29/22 13:18 [facility] Disclaimer: The information contained in this section may have been updated after the patient was seen, as this information can be updated by other users. Medical History No significant past medical history Social History Smoking Status: Never smoker second hand exposure: No alcohol intake: never substance use type: denies use current occupational status: employed Travel in the last 8 weeks: None household members: family housing: house current occupation: [employer] current occupational exposures/hazards: No caffeine: Yes Have you lived/traveled outside [place] in past 30 days?: No Contact w/someone who lives/traveled outside US past 30 days?: No Exposure to someone with infectious disease in past 14 days?: No Do you have a fever (greater than 100.4 F or 38 C)?: No Have you tested positive for COVID-19: No Exposed to someone with COVID-19 in past 14 days?: No Do you have a sore throat?: No Do you have a cough?: No Do you have any weakness?: No Do you have any diarrhea?: No Are you experiencing any unusual bleeding?: No Do you have any muscle aches/pain?: No Do you have any abdominal pain?: No Are you experiencing loss of taste or smell?: No Other Medical History Have you received the Flu Vaccine for this season: Yes Have you received the Pneumonia Vaccine: No ROS Obtained: Yes Systems reviewed as appropriate & no additional complaints except as documented Physical Exam General General appearance: alert and in no apparent distress Respiratory Respiratory exam: Absent normal lung sounds bilaterally (Patient actually does not have any adventitious sounds but has decreased air entry) Cardiovascular Cardiovascular exam: Present regular rate Neurological Exam Neurological exam: Present alert and oriented X3 Medical Decision Making Medical Records Medical records reviewed: Yes I reviewed the patient's medical records. Screening: Per USPSTF and CDC recommendations, given the prevalence of disease in our region, it is our hospital?s policy to screen for HIV and viral Hepatitis for all patients aged 18 and over and those with ongoing risk factors. Jasno Inquiry Pt receiving controlled substance: No Vital Signs: 08/25/24 18:07 08/25/24 18:30 08/25/24 20:27 Temperature 98.1 F 98.2 F Temperature Source Oral Pulse Rate 76 73 Pulse Rate [Left Radial] 83 Respiratory Rate 20 20 Blood Pressure 124/78 118/84 Blood Pressure [Right Arm] 120/83 Blood Pressure Mean [Right Arm] 95 02 Sat by Pulse Oximetry 99 97 Oxygen Delivery Method Room Air Room Air Room Air Lab Data Lab results reviewed: Yes I reviewed the patient's lab results. Lab Results 08/25/24 18:33: WBC 6.8, RBC 5.03, Hgb 15.0, Hct 43.5, MCV 86.5, MCH 29.8, MCHC 34.5, RDW 12.7, Plt Count 371, MPV 10.2, Neut % (Auto) 52.7, Lymph % (Auto) 34.4, [place] % (Auto) 9.5 H, Eos % (Auto) 2.2, Baso % (Auto) 0.9, Neut # (Auto) 3.6, Lymph # (Auto) 2.4, [place] # (Auto) 0.7, Eos # (Auto) 0.2, Baso # (Auto) 0.1, Sodium 140, Potassium 4.5, Chloride 107, Carbon Dioxide 28, Anion Gap 9.5, BUN 15, Creatinine 1.20, Estimated Creat Clear 128, Estimated GFR 73, Est GFR ( Amer) 88, Glucose 85, Calcium 9.4, Total Bilirubin 0.4, AST 62 H, ALT 114 H, Alkaline Phosphatase 62, Troponin I < 0.01, Total Protein 7.4, Albumin 4.8, Globulin 2.6, Albumin/Globulin Ratio 1.8 08/25/24 18:36: VBG pH 7.35, VBG pCO2 44.3, VBG pO2 42.7 H, VBG HCO3 23.6, VBG Total CO2 25.0, VBG O2 Saturation 75.8 H, VBG Base Excess -2.1, VBG Lactic Acid 1.0 08/25/24 18:50: SARS-CoV-2 (PCR) Not detected, Influenza A Untype (PCR) Not detected, Influenza Type B (PCR) Not detected 08/25/24 18:33 08/25/24 18:33 Orders (Tests/Meds): ED MEDICATIONS Discontinued Medications Generic Name Dose Route Start Last Admin Trade Name Ramesh PRN Reason Stop Dose Admin Albuterol/Ipratropium 3 ml 08/25/24 18:18 08/25/24 18:38 Ipratropium/Albuterol 3 Ml Neb IH 08/25/24 18:19 3 ml ONCE ONE Administration Dexamethasone Sodium Phosphate 10 mg 08/25/24 18:18 08/25/24 18:37 Dexamethasone 4mg/Ml 5ml Mdv IV 08/25/24 18:19 10 mg ONCE ONE Administration Iopamidol 70 ml 08/25/24 19:22 08/25/24 19:23 Iopamidol-370 (76%);100ml Bottle IV 08/25/24 19:23 70 ml ONCE ONE Administration Sodium Chloride 10 ml 08/25/24 19:22 08/25/24 19:23 Sodium Chloride 0.9% 10ml Syr (Rad Only) IV 08/25/24 19:23 10 ml ONCE ONE Administration Sodium Chloride 50 ml 08/25/24 19:22 08/25/24 19:23 0.9 % Sodium Chloride 50 Ml Vial IV 08/25/24 19:23 50 ml ONCE ONE Administration ORDERS Category Date Time Status CT angio chest PE protocol Stat Cat Scan 08/25/24 18:18 Completed CBC w/Auto Diff [Complete Blood Count Auto Diff] Stat Lab 08/25/24 18:33 Completed CMP [Comprehensive Metabolic Panel] Stat Lab 08/25/24 18:33 Completed Rapid PCR Covid and Flu A/B Stat Lab 08/25/24 18:50 Completed Trop I [Troponin I] Stat Lab 08/25/24 18:33 Completed VBG [Venous Blood Gas] Stat RT 08/25/24 18:36 Completed HEART Score History (anamnesis): Slightly suspicious ECG: Normal Age: <45 years Risk factors: 1-2 risk factors Troponin: </= normal limit HEART Score: 1 Medical Decision Narrative: In summary patient is a 28-year-old male who presents to the emergency department for evaluation of dyspnea. Patient is hemodynamically stable upon arrival, febrile. Physical exam is remarkable for clear breath sounds however he has diminished air entry and breath sounds are fainter at the bases. He does not have accessory muscle use. He has no palpable chest pain on palpation. Heart sounds are S1-S2 regular rate and rhythm patient has no dependent edema noted. Patient has no abdominal tenderness no rebound or guarding or rigidity with normal bowel sounds. Differential diagnosis includes upper or lower respiratory tract infection versus reactive airway disease versus ACS etc. Initial workup will be conducted with hematologic labs CTA PE protocol COVID and flu swabs. Initial interventions include DuoNeb and Decadron initially. Initial workup reviewed by me shows that his hematologic labs are nonactionable his COVID and flu are negative and my informal interpretation of the CTA PE protocol shows no evidence of thrombus or any other acute intrathoracic process prior to radiology read. COVID and flu swabs are negative. Upon repeat evaluation patient actually reported significant improvement after administration of Decadron and DuoNeb.. Given this while patient not have a history of asthma he may be in an environment that is triggering a reactive airway issue or could be developing a upper or lower respiratory tract infection although that is less likely. Given this, I had a shared decision-making discussion with the patient regarding his RAMÍREZ findings and my recommendations which is referred to pulmonology for further evaluation of possible underlying reactive airway disease along with a metered-dose inhaler. Patient was via patient directed decision making discharge comfortable going home as he felt completely better with that plan. Thus patient is appropriate for discharge with close follow-up with his PCP if he has any continuing new or worsening signs or symptoms and referred to pulmonology. Critical Care Critical Care Time Critical Care Time: Yes Attestation: On 08/25/24, the high probability of a clinically significant, sudden or life threatening deterioration of the following system(s) required my full and direct attention, intervention and personal management. The time I documented below is in addition to time spent performing reported procedures but includes the following listed in this critical care notation. Total Time Total Critical Care Time: 35
--- NOTE | 2024-08-25 18:18 | CT_ITS ---
PROCEDURE INFORMATION: Exam: CTA Chest With Contrast Exam date and time: 08/25/2024 7:20 PM Age: 28 years old Clinical indication: Dyspnea TECHNIQUE: Imaging protocol: Computed tomographic angiography of the chest with contrast. Exam focused on the arteries. 3D rendering (Not supervised by radiologist): MIP and/or 3D reconstructed images were created by the technologist. Radiation optimization: All CT scans at this facility use at least one of these dose optimization techniques: automated exposure control; mA and/or kV adjustment per patient size (includes targeted exams where dose is matched to clinical indication); or iterative reconstruction. Contrast material: ISOVUE; Contrast volume: 70 ml; Contrast route: INTRAVENOUS (IV); COMPARISON: No relevant prior studies available. FINDINGS: Pulmonary arteries: Normal. No pulmonary emboli. Aorta: Unremarkable. No aortic aneurysm. No aortic dissection. Lungs: Unremarkable. No consolidation. No masses. Pleural spaces: Unremarkable. No pneumothorax. No pleural effusion. Heart: Unremarkable. No cardiomegaly. No pericardial effusion. Lymph nodes: Unremarkable. No enlarged lymph nodes. Liver: Liver is diffusely fatty. No focal hepatic abnormality. Bones/joints: Unremarkable. No acute fracture. Soft tissues: Unremarkable. IMPRESSION: No acute abnormality. Incidentally noted fatty liver.
[2024-08-25 18:30] VITALS: BP 124/78; PULSE 76; O2SAT 97
[2024-08-25] MEDS: DEXAMETHASONE 4MG/ML 5ML MDV 10 MG IV (18:37)
[2024-08-25] MEDS: IPRATROPIUM/ALBUTEROL 3 ML NEB IH (18:38)
[2024-08-25 18:41] LABS: VBG Base Excess -2.1 mmol/L (-2.4-2.3); VBG HCO3 23.6 mmol/L (23-30); VBG Oxygen Saturation 75.8 % (50-70); VBG PCO2 44.3 mmol/L (35-51); VBG PH 7.35 mmol/L (7.31-7.41); VBG PO2 42.7 mmol/L (28-40)
[2024-08-25 18:47] LABS: Basophils # 0.1 K/mm3 (0-0.2); Basophils % 0.9 % (0.1-2.0); Eosinophils # 0.2 K/mm3 (0.0-0.4); Eosinophils % 2.2 % (0.1-12.0); Hematocrit 43.5 % (42.0-52.0); Lymphocytes # 2.4 K/mm3 (0.7-4.5); Lymphocytes % 34.4 % (10-50); Mean Corpuscular HGB Conc 34.5 g/dL (31.8-35.4); Mean Corpuscular Hemoglobin 29.8 pg (27.0-31.2); Mean Corpuscular Volume 86.5 fl (80-94); Mean Platelet Volume 10.2 fl (7.4-10.4); Monocytes # 0.7 K/mm3 (0.1-1.0); Monocytes % 9.5 % (1.7-9.3); Neutrophils # 3.6 K/mm3 (1.8-7.8); Neutrophils % 52.7 % (37.0-80.0); Platelet Count 371 K/mm3 (142-424); Red Blood Count 5.03 M/mm3 (4.60-6.20); Red Cell Distribution Width 12.7 % (11.5-17.5); White Blood Count 6.8 K/mm3 (4.8-10.8)
[2024-08-25 18:57] LABS: Alanine Aminotransferase 114 U/L (12-78); Albumin Level 4.8 g/dl (3.5-5.0); Albumin/Globulin Ratio 1.8 (1.1-1.8); Alkaline Phosphatase 62 U/L (38-126); Anion Gap 9.5 mEq/L (5-15); Aspartate Amino Transferase 62 U/L (17-59); Bilirubin,Total 0.4 mg/dl (0.2-1.3); Blood Urea Nitrogen 15 mg/dl (9-20); Calcium 9.4 mg/dl (8.4-10.2); Carbon Dioxide 28 mmol/L (22.0-30.0); Chloride 107 mmol/L (98-107); Creatinine Clearance Estimated 128 mL/min (50-200); Estimated Glomerular Filt Rate 73 ml/min (>60); GFR (African American) 88 ML/MIN (>60); Globulin 2.6 g/dL (1.3-3.2); Glucose 85 mg/dl (74-100); Potassium 4.5 mmoL/L (3.5-5.1); Sodium 140 mmol/L (136-145); Total Protein,Serum 7.4 g/dl (6.3-8.2)
[2024-08-25 18:58] LABS: Coronavirus 19, PCR Not Detected (NotDetected); Influenza A, PCR Not Detected (NotDetected); Influenza B, PCR Not Detected (NotDetected)
[2024-08-25 19:15] LABS: Troponin I < 0.01 ng/ml (0.00-0.034)
[2024-08-25] MEDS: SODIUM CHLORIDE 0.9% 10ML SYR (RAD ONLY) 10 ML IV (19:23)
[2024-08-25] MEDS: 0.9 % SODIUM CHLORIDE 50 ML VIAL IV (19:23)
[2024-08-25] MEDS: IOPAMIDOL-370 (76%);100ML BOTTLE 70 ML IV (19:23)
[2024-08-25 20:27] VITALS: BP 118/84; PULSE 73; RESP 20; TEMP 36.8; O2SAT 96
== END 2024-08-25 20:33 | disposition home or self-care (01) ==
PROVIDERS: Physician Assistant; Emergency Provider Emergency Medicine; PCP Family Medicine
DX: J45.909 Unspecified asthma, uncomplicated (principal); R06.00 Dyspnea, unspecified; R06.02 Shortness of breath; R07.89 Other chest pain
CPT/HCPCS: 71275; 80053; 82803; 84484; 85025; 87636; 96374; 99291; J1100; J7620; Q9967